=== PATIENT | female | born 1930 | race Caucasian/White ===

== ENCOUNTER 2016-11-06 15:21 | Outpatient (CLI) | payer OTHER ==
--- NOTE | 2016-11-06 23:47 | Diagnostic Imaging Report ---
EDIN MONTOYA [facility] [address] [facility] [address] [address] Report Submission Date: Nov 06, 2016 4:06:12 PM CDT Patient Study Name: STEPHEN MCDONNELL Date: Nov 06, 2016 3:42:48 PM CDT Modality Type: CR Gender: F Description: PELVIS : [birth year] Institution: [facility] Physician: EDIN MONTOYA Left hip 2 views Clinical history: Pain AP and frog leg Findings: Degenerative arthritis affects the head. There is no fracture or lytic change. Arthritic changes are present the symphysis pubis and left sacroiliac joint. Impression: Multifocal degenerative arthritis. No acute hip pathology Consider MRI for further evaluation Electronically signed on Nov 06, 2016 4:06:12 PM CDT by: Reggie GASCA
== END 2016-11-06 15:22 ==
LOC: RAD 15:21
PROVIDERS: ATTEND Family Medicine
DX: M16.12 Unilateral primary osteoarthritis, left hip (principal)

== ENCOUNTER 2017-01-29 07:56 | Outpatient (CLI) | payer OTHER ==
[2017-01-29 08:36] LABS: eGFR (African) > 60; eGFR (Non-African) > 60
== END 2017-01-29 07:57 ==
LOC: LAB 07:56
PROVIDERS: ATTEND Family Medicine
DX: M15.9 Polyosteoarthritis, unspecified (principal); E78.5 Hyperlipidemia, unspecified
CPT/HCPCS: 36415; 80053; 80061

== ENCOUNTER 2017-04-15 14:23 | Outpatient (CLI) | payer OTHER ==
[2017-04-15 14:59] LABS: eGFR (African) > 60; eGFR (Non-African) > 60
== END 2017-04-15 14:24 ==
LOC: LAB 14:23
PROVIDERS: ATTEND Family Medicine
DX: R79.89 Other specified abnormal findings of blood chemistry (principal)
CPT/HCPCS: 36415; 80053

== ENCOUNTER 2017-09-30 16:36 | Outpatient (CLI) | payer OTHER ==
[2017-09-30 17:41] LABS: MEAN CORPUSCULAR HEMOGLOBIN 29.5 pg (28.0-34.0)
[2017-09-30 17:51] LABS: eGFR (African) > 60; eGFR (Non-African) > 60
== END 2017-09-30 16:38 ==
LOC: RT 16:36
PROVIDERS: ATTEND Family Medicine
DX: I48.91 Unspecified atrial fibrillation (principal)
CPT/HCPCS: 36415; 80053; 84439; 84443; 84481; 85027; 87086

== ENCOUNTER 2017-10-01 17:26 | Outpatient (CLI) | payer OTHER | END 2017-10-01 17:27 | LOC: RT 17:26 | PROVIDERS: ATTEND Family Medicine | DX: I48.91 Unspecified atrial fibrillation (principal) ==

== ENCOUNTER 2017-10-22 08:15 | Outpatient (CLI) | payer OTHER | END 2017-10-22 08:16 | LOC: LAB 08:15 | PROVIDERS: ATTEND Family Medicine | DX: I48.91 Unspecified atrial fibrillation (principal) | CPT/HCPCS: 36415; 85610 ==

== ENCOUNTER 2017-10-24 08:10 | Outpatient (CLI) | payer OTHER | END 2017-10-24 08:11 | LOC: LAB 08:10 | PROVIDERS: ATTEND Family Medicine | DX: I48.91 Unspecified atrial fibrillation (principal) | CPT/HCPCS: 36415; 85610 ==

== ENCOUNTER 2017-11-01 06:40 | Emergency (ER) | payer OTHER ==
[2017-11-01] MEDS ORDERED: 0.9 % SODIUM CHLORIDE 1,000 ML IV ONE ×4 (07:08→10:04)
--- NOTE | 2017-11-01 07:28 | ED Physician Documentation ---
Syncope/Near Syncope - HISTORIAN Historian: patient, paramedics - HPI Stated Complaint: syncopal episode Chief Complaint: Syncope Additional Information: pt up this am to br - got up became syncopal sat down on floor had fecal incontinence got up std to walk weak again then lay down on floor called EMS' ORTHOSTATIC DIZZY HERE ON STANDING. states does not drink much and none after supper. denies chf-has afib dx in september. but she did not have afib this am. had 1 episode near syncope years ago but feels she did not have afib this am. she is on metoprolol and coumadin plus nsaids Witnessed: Yes Position at Time of Episode: sitting (on stool bathroom) Symptoms Prior to Episode: light-headed, visual disturbance Character of Events(s): almost passed out. denies: lost consciousness, became unresponsive, focal seizure, generalized seizure Symptoms after Event: incontinent of stool. denies: confused after event Location of Injury: none Associated Symptoms: dizziness (slight plus weakness) - ROS CONST: denies: recent illness EYES/ENT: denies: problems with vision GI/: denies: diarrhea, black stools, problems urinating LNMP: post menopausal MS/SKIN/LYMPH: denies: joint pain, leg swelling, rash, swollen glands, ankle swelling NEURO/PSYCH: denies: confusion, anxiety, depression - PAST HX Cardiac Disease: A-Fib ( djd htn) PE Risk Factors: hypertension Other History: hypertension (cataracts knee) Allergies/Adverse Reactions: Allergies Allergy/AdvReac Type Severity Reaction Status Date / Time No Known Drug Allergies Allergy Verified 11/01/17 08:24 Home Medications: Ambulatory Orders Medication Instructions Recorded Sam & IzaiahBDaynelactis 1 cap PO D 11/01/17 [Probiotic] - SOCIAL HX Smoking History: non-smoker Alcohol Use: none Drug Use: none - FAMILY HX Family History: none - VITAL SIGNS Vital Signs: Vital Signs Temp Pulse Resp BP Pulse Ox 98.2 F 68 14 134/54 96 11/01/17 06:45 11/01/17 07:00 11/01/17 06:45 11/01/17 07:00 11/01/17 09:00 - REVIEWED ASSESSMENTS Nursing Assessment Reviewed: Yes Vitals Reviewed: Yes ED Results Lab/Radiology - Lab Results Lab Results: Lab Results 04/11/01/17 11/01/17 07:25 07:25 07:25 WBC 9.00 K/ul K/ul (4.00-12.00) RBC 3.87 M/ul L M/ul (3.90-5.20) Hgb 11.6 g/dL L g/dL (12.0-16.0) Hct 36.8 % % (34.5-46.5) MCV 95.0 fl fl (80.0-100.0) MCH 30.0 pg pg (28.0-34.0) MCHC 31.6 g/dL g/dL (30.0-36.0) RDW 14.3 % % (11.3-14.3) Plt Count 234 K/mm3 K/mm3 (130-400) Neut % (Auto) 70.2 % % (39.0-79.0) Lymph % (Auto) 20.8 % % (16.0-50.0) Swift % (Auto) 4.5 % % (0.0-11.0) Eos % (Auto) 2.4 % % (0.0-6.8) Baso % (Auto) 0.5 (0.0-1.5) Neut # (Auto) 6.3 # k/uL # k/uL (1.4-7.7) Lymph # (Auto) 1.9 # k/uL # k/uL (0.6-4.0) Swift # (Auto) 0.4 # k/uL # k/uL (0.0-0.9) Eos # (Auto) 0.2 # k/uL # k/uL (0.0-0.6) Baso # (Auto) 0.0 # k/uL # k/uL (0.0-0.5) Reactive Lymphs % 1.5 % % (0.0-5.0) Reactive Lymphs # 0.1 # k/uL # k/uL (0.0-0.8) PT 32.9 Seconds H Seconds (9.4-11.6) INR 3.09 H (0.9-1.2) Sodium 141 mmol/L mmol/L (136-145) Potassium 4.8 mmol/L mmol/L (3.5-5.1) Chloride 103 mmol/L mmol/L (98-107) Carbon Dioxide 28 mmol/L mmol/L (22-30) BUN 46 mg/dL H mg/dL (7-17) Creatinine 1.00 mg/dL mg/dL (0.52-1.04) Estimated Creat Clear 41 Est GFR ( Amer) > 60 (60 - ) Est GFR (Non-Af Amer) > 60 (60 - ) Glucose 86 mg/dL mg/dL (74-106) Calcium 9.5 mg/dL mg/dL (8.4-10.2) Total Bilirubin 0.6 mg/dL mg/dL (0.2-1.3) AST 26 U/L U/L (15-46) ALT 33 U/L U/L (13-69) Alkaline Phosphatase 67 U/L U/L (38-126) Total Protein 6.7 g/dL g/dL (6.3-8.2) Albumin 3.6 g/dL g/dL (3.5-5.0) - Orders Orders: ED Orders Category Date Time Status Assess pulse oximetry Q1H Care 11/01/17 07:23 Active Orthostatics 1T Care 11/01/17 07:[address] IV Lock 1T Care 11/01/17 07:24 Active CBC/PLATELET/DIFF Routine Lab 11/01/17 07:25 Completed CMP Routine Lab 11/01/17 07:25 Completed PT-INR Routine Lab 11/01/17 07:25 Completed URINALYSIS Routine Lab 11/01/17 Ordered 0.9 % Sodium Chloride [Normal Saline] 1,000 ml Med 11/01/17 07:08 Discontinued IV .STK-MED 0.9 % Sodium Chloride [Normal Saline] 1,000 ml Med 11/01/17 07:30 Ordered IV Q1H 0.9 % Sodium Chloride [Normal Saline] 1,000 ml Med 11/01/17 08:21 Active IV Q1H Ondansetron HCl/Pf [Zofran 4 mg/2 ml] Med 11/01/17 08:39 Discontinued 4 mg .ROUTE .STK-MED ONE Ondansetron HCl/Pf [Zofran 4 mg/2 ml] Med 11/01/17 08:45 Discontinued 4 mg IVP NOW ONE EKG WITH COMPARISON Stat Ther 11/01/17 Ordered Syncope Physical Exam - Physical Exam General Appearance: mild distress. No: anxious, lethargic EENT: nml eye inspection Neck/Back: neck supple, non-tender, no carotid bruit. No: cerv. lymphadenopathy , carotid bruit, neck tenderness Respiratory: no resp distress, chest non-tender, breath sounds normal CVS: reg rate & rhythm Abdomen: non-tender, nml bowel sounds, no distention. No: tenderness Skin: warm/dry, normal color. No: cyanosis, diaphoresis, jaundice, mottled, pallor Extremities: non-tender, normal range of motion, no evidence of injury, no edema - Neuro/Psych Higher Functions: alert, oriented x3, no evidence of acute CVA, mood/affect nml Sensorimotor: nml motor response, nml sensory response Discharge Clincal Impression: Acute GI hemorrhage, azotemia dehydration, hx afib tx w/coumadin, termite treater nsaid usage Referrals: Gino Baldwin MD [Primary Care Provider] - 2 Days Comments: discussed w/ pt and daughter and DR SUNIL SEGAL will tnst via ambulance Condition: Fair Disposition: 02 XFER [facility] HOSP Decision to Admit: [id number] Decision Time: 09:21
[2017-11-01] MEDS ORDERED: 0.9 % SODIUM CHLORIDE 1,000 ML IV SCH (07:30)
[2017-11-01 07:31] LABS: eGFR (Non-African) > 60
[2017-11-01 07:33] LABS: BASOPHILS % 0.5 (0.0-1.5); EOSINOPHILS % 2.4 % (0.0-6.8); MONOCYTES % 4.5 % (0.0-11.0); NEUTROPHILS # 6.3 # k/uL (1.4-7.7)
[2017-11-01] MEDS ORDERED: ONDANSETRON HCL/PF 4 MG/ 2ML VIAL ONE (08:39)
[2017-11-01] MEDS ORDERED: ONDANSETRON HCL/PF 4 MG/ 2ML VIAL IVP ONE (08:45)
[2017-11-01 10:04] VITALS: BP 140/46
== END 2017-11-01 09:50 | disposition short-term general hospital (02) ==
LOC: ED 06:40
DX: K92.2 Gastrointestinal hemorrhage, unspecified (principal); R55 Syncope and collapse; R79.89 Other specified abnormal findings of blood chemistry; E86.0 Dehydration; I48.91 Unspecified atrial fibrillation
CPT/HCPCS: 80053; 85025; 85610; 93005; J2405; J7030; 96360; 96361; 96374; 99284; S1016

== ENCOUNTER 2017-11-30 13:42 | Outpatient (CLI) | payer OTHER ==
[2017-11-30 14:07] LABS: MEAN CORPUSCULAR VOLUME 94.2 fl (80.0-100.0)
== END 2017-11-30 14:05 ==
LOC: LAB 13:42
PROVIDERS: ATTEND Family Medicine
DX: K92.2 Gastrointestinal hemorrhage, unspecified (principal)
CPT/HCPCS: 36415; 85027

== ENCOUNTER 2018-01-14 09:50 | Outpatient (CLI) | payer OTHER ==
[2018-01-14 10:39] LABS: eGFR (Non-African) > 60
--- NOTE | 2018-01-14 17:10 | Diagnostic Imaging Report ---
EDIN MONTOYA [facility] [address] [facility] [address] Report Submission Date: Jan 14, 2018 1:37:08 PM CDT Patient Study Name: STEPHEN MCDONNELL Date: Jan 14, 2018 11:15:34 AM CDT Modality Type: CT\SR Gender: F Description: CT ABD PELVIS W/ CON : [birth year] Institution: [facility] Physician: EDIN MONTOYA Examination: CT Abdomen/pelvis History: ABDOMINAL PAIN, EVALUATE DUODENAL STRICTURE FOR EXTRIN (Hx) Comparison exams: None available Technique: CT Abdomen/pelvis with IV protocol. Findings: Liver demonstrates mild diffuse low attenuation. No central lesion. Spleen, adrenals, pancreas, and kidneys are without gross irregularity. Small gallstone. No suspicious renal calcifications. Ureters are nondilated in their course through the abdomen and pelvis. No central calcifications. Bladder margin within normal limits. Pelvic phleboliths. Abdominal aorta without aneurysm. Peripheral atherosclerotic disease. Cardiac silhouette is not enlarged. No pericardial effusion. Vascular calcifications. No abnormal small bowel dilation. Stool/fluid within the large bowel limiting sensitivity. Stomach mucosa thickened. Duodenal C sweep without abnormal dilation. No mesenteric inflammatory changes or free fluid. Appendix not visualized. Sigmoid diverticula. Umbilical hernia. No bowel involvement. Osseous structures demonstrates degenerative spurring. Minimal listhesis. No compression deformity. Lung bases demonstrate atelectasis without infiltrate. No effusion. Right lung base granuloma. Impression: No abdominal mass or acute upper abdominal organ inflammatory process. No abnormal bowel dilation or inflammation. Stomach mucosal thickening - possibly due to nondistention. Consider dedicated imaging if clinically warranted. No abnormal duodenum dilation. Sigmoid diverticulosis. No evidence for acute diverticulitis. Umbilical hernia. No bowel involvement. Fatty liver Gallstone. No suspicious renal calcifications or abnormal ureteric dilation. Lung base atelectasis. No lung base consolidation or effusion. Electronically signed on Jan 14, 2018 1:37:08 PM CDT by: Nico GASCA
== END 2018-01-14 09:52 ==
LOC: RAD 09:50
PROVIDERS: ATTEND Family Medicine
DX: I48.0 Paroxysmal atrial fibrillation (principal); K31.5 Obstruction of duodenum
CPT/HCPCS: 36415; 74177; 80048; Q9967